=== PATIENT | female | born 1990 | race Caucasian/White ===

== ENCOUNTER 2021-01-11 14:57 | Emergency (ER) | payer OTHER ==
[~2021-01-11] VITALS: Ht 170.2 cm; Wt 108.3 kg
[2021-01-11] MEDS ORDERED: ACETAMINOPHEN 500 MG TAB PO ONE (17:50)
[2021-01-11] MEDS ORDERED: NS 1,000 ML IV ONE (17:50)
[2021-01-11] MEDS ORDERED: ONDANSETRON 4MG/2ML VIAL IV ONE (17:50)
[2021-01-11 17:54] LABS: BASO # 0.1 10^3/uL (0.0-0.2); BASO % 0.5 % (0.0-1.0); EOS # 0.2 10^3/uL (0.0-0.5); HEMATOCRIT 38.2 % (36.0-47.0); HEMOGLOBIN 12.8 g/dl (12.0-15.5); LYMPH # 2.5 10^3/uL (1.5-5.0); MEAN CORPUSCULAR HEMOGLOBIN 30.3 pg (27.0-33.0); MEAN CORPUSCULAR HGB CONC 33.5 g/dl (32.0-36.5); MEAN CORPUSCULAR VOLUME 90.3 fl (80.0-96.0); MONO # 0.8 10^3/uL (0.0-0.8); MONO % 4.9 % (2.0-8.0); NEUTROPHILS # 11.6 10^3/uL (1.5-8.5); NEUTROPHILS % 75.8 % (36.0-66.0); PLATELET COUNT, AUTOMATED 307 10^3/uL (150-450); RED BLOOD COUNT 4.23 10^6/uL (4.00-5.40); WHITE BLOOD COUNT 15.4 10^3/uL (4.0-10.0)
[2021-01-11 18:21] LABS: ALBUMIN 2.8 GM/DL (3.2-5.2); ALT/SGPT 19 U/L (12-78); BILIRUBIN,DIRECT < 0.1 MG/DL (0.0-0.2); BILIRUBIN,TOTAL 0.3 MG/DL (0.2-1.0); CPK CREATINE PHOSPHOKINASE 31 U/L (26-192); LIPASE 59 U/L (73-393); TOTAL PROTEIN 6.8 GM/DL (6.4-8.2)
[2021-01-11 20:09] VITALS: BP 121/63
== END 2021-01-11 20:25 | disposition home or self-care (01) ==
LOC: M ED 14:57
DX: R51.9 Headache, unspecified (principal); E10.9 Type 1 diabetes mellitus without complications
CPT/HCPCS: 80047; 80076; 81001; 82550; 83690; 85025; 96361; 96374; 99284; J2405

== ENCOUNTER 2022-10-25 20:07 | Inpatient (IN) | payer OTHER ==
[~2022-10-25] VITALS: Ht 170.2 cm; Wt 110.6 kg
[2022-10-25] MEDS ORDERED: DEXTROSE 50% 50ML SYRINGE IV STA ×2 (20:19→21:48)
[2022-10-25] MEDS ORDERED: DEXTROSE 50% 50ML SYRINGE As Ordered ONE (20:21)
[2022-10-25] MEDS ORDERED: D5W/0.45% SODIUM CHLORIDE 1,000 ML IV SCH (20:30)
[2022-10-25 20:33] LABS: VENOUS BASE EXCESS -0.5 (-2.0-2.0); VENOUS HCO3 23.3 MEQ/L (23.0-27.0); VENOUS O2 SATURATION 98.6 % (60.0-80.0); VENOUS PARTIAL PRESSURE CO2 36.3 mmHg (38.0-50.0); VENOUS PARTIAL PRESSURE O2 130.4 mmHg (30.0-50.0); VENOUS PH 7.426 UNITS (7.330-7.430); VENOUS STANDARD HCO3 24.1 MEQ/L; VENOUS TOTAL CO2 24.5 MEQ/L (24.0-28.0)
[2022-10-25 20:36] LABS: BASO # 0.1 10^3/uL (0.0-0.2); BASO % 0.3 % (0.0-1.0); EOS # 0.2 10^3/uL (0.0-0.5); HEMATOCRIT 41.8 % (36.0-47.0); HEMOGLOBIN 14.2 g/dl (12.0-15.5); LYMPH # 2.8 10^3/uL (1.5-5.0); LYMPH % 14.6 % (24.0-44.0); MEAN CORPUSCULAR HEMOGLOBIN 29.3 pg (27.0-33.0); MEAN CORPUSCULAR VOLUME 86.4 fl (80.0-96.0); MONO # 0.8 10^3/uL (0.0-0.8); MONO % 4.3 % (2.0-8.0); NEUTROPHILS # 15.2 10^3/uL (1.5-8.5); NEUTROPHILS % 79.3 % (36.0-66.0); PLATELET COUNT, AUTOMATED 346 10^3/uL (150-450); RED BLOOD COUNT 4.84 10^6/uL (4.00-5.40); WHITE BLOOD COUNT 19.1 10^3/uL (4.0-10.0)
[2022-10-25 20:48] LABS: HEMOGLOBIN A1c 6.3 % (4.0-6.0)
[2022-10-25 21:02] LABS: LIPASE 28 U/L (12-53)
[2022-10-25 21:16] LABS: ALBUMIN 3.7 G/DL (3.2-5.2); ALKALINE PHOSPHATASE 65 U/L (46-116); ALT/SGPT 10 U/L (7.0-40); AST/SGOT 9 U/L (<34); BILIRUBIN,DIRECT < 0.1 MG/DL (<0.4); BILIRUBIN,TOTAL 0.3 MG/DL (0.3-1.2); TOTAL PROTEIN 7.3 G/DL (5.7-8.2)
[2022-10-25] MEDS ORDERED: METF-838 PO (22:25)
[2022-10-25] MEDS ORDERED: PYRI50TA41 (22:25)
[2022-10-25] MEDS ORDERED: INSUH10VL INJ (22:25)
[2022-10-25] MEDS ORDERED: METO10TA2 (22:25)
[2022-10-25 23:21] LABS: OSMOLALITY SERUM 277 MOSM/KG (275-295)
[2022-10-25] MEDS ORDERED: ONDANSETRON 4MG 2ML VIAL IV ONE (23:45)
[2022-10-26] VITALS (7 sets, daily range): BP systolic 106–130; BP diastolic 55–66
[2022-10-26] MEDS ORDERED: GLUCOSE 4GM CHEW TABLET PO PRN (00:10)
[2022-10-26] MEDS ORDERED: GLUCAGON INJ 1MG VIAL SC PRN (00:10)
[2022-10-26] MEDS ORDERED: DEXTROSE 50% 50ML SYRINGE IV PRN (00:10)
[2022-10-26] MEDS ORDERED: MOM 30ML SUSPENSION UDC PO PRN (00:10)
[2022-10-26] MEDS ORDERED: D5W/0.45% SODIUM CHLORIDE 1,000 ML IV SCH (00:20)
[2022-10-26] MEDS ORDERED: MAGN400T2 PO (00:31)
[2022-10-26] MEDS ORDERED: FISH1CAP26 PO (00:31)
[2022-10-26] MEDS ORDERED: prenatal PO (00:31)
[2022-10-26] MEDS ORDERED: ASPI81TA26 PO (00:31)
[2022-10-26] MEDS ORDERED: VITA200020 PO (00:31)
[2022-10-26] MEDS ORDERED: HOME MED LIST COMPLETE! XX SCH (00:35)
[2022-10-26 00:37] LABS: RSV AMPLIFICATION NEGATIVE (NEGATIVE)
[2022-10-26] MEDS: INSULIN LISPRO (NovoLOG) PER UNIT SC SCH ×2 (00:50→07:00)
[2022-10-26] MEDS: PROMETHAZINE 25MG/ML 1ML VIAL IV PRN ×2 (01:31→09:10)
[2022-10-26 06:59] LABS: HEMATOCRIT 39.6 % (36.0-47.0); HEMOGLOBIN 13.1 g/dl (12.0-15.5); MEAN CORPUSCULAR HEMOGLOBIN 29.6 pg (27.0-33.0); MEAN CORPUSCULAR HGB CONC 33.1 g/dl (32.0-36.5); MEAN CORPUSCULAR VOLUME 89.6 fl (80.0-96.0); PLATELET COUNT, AUTOMATED 261 10^3/uL (150-450); RED BLOOD COUNT 4.42 10^6/uL (4.00-5.40); WHITE BLOOD COUNT 8.7 10^3/uL (4.0-10.0)
[2022-10-26 07:29] LABS: BLOOD UREA NITROGEN 18 MG/DL (9-23); CALCIUM LEVEL 7.8 MG/DL (8.5-10.1); CARBON DIOXIDE LEVEL 18 MMOL/L (20-31); CHLORIDE LEVEL 103 MMOL/L (98-107); CREATININE FOR GFR 0.55 MG/DL (0.55-1.30); GLOMERULAR FILTRATION RATE > 60.0 (>60); GLUCOSE, FASTING 399 MG/DL (60-100); POTASSIUM SERUM 4.3 MMOL/L (3.5-5.1); SODIUM LEVEL 130 MMOL/L (136-145)
[2022-10-26] MEDS ORDERED: INSULIN LISPRO (NovoLOG) PER UNIT SC SCH ×3 (07:30→21:00)
[2022-10-26 11:38] LABS: BLOOD UREA NITROGEN 16 MG/DL (9-23); CARBON DIOXIDE LEVEL 21 MMOL/L (20-31); CHLORIDE LEVEL 101 MMOL/L (98-107); CREATININE FOR GFR 0.55 MG/DL (0.55-1.30); GLOMERULAR FILTRATION RATE > 60.0 (>60); GLUCOSE, FASTING 221 MG/DL (60-100); POTASSIUM SERUM 3.9 MMOL/L (3.5-5.1); SODIUM LEVEL 132 MMOL/L (136-145)
[2022-10-27] VITALS: BP 107/58
[2022-10-27 04:00] VITALS: BP 100/52
[2022-10-27 07:43] LABS: HEMOGLOBIN 12.6 g/dl (12.0-15.5); MEAN CORPUSCULAR HEMOGLOBIN 29.6 pg (27.0-33.0); MEAN CORPUSCULAR HGB CONC 33.2 g/dl (32.0-36.5); MEAN CORPUSCULAR VOLUME 89.4 fl (80.0-96.0); PLATELET COUNT, AUTOMATED 258 10^3/uL (150-450); RED BLOOD COUNT 4.25 10^6/uL (4.00-5.40); WHITE BLOOD COUNT 5.8 10^3/uL (4.0-10.0)
[2022-10-27 07:54] LABS: BLOOD UREA NITROGEN 10 MG/DL (9-23); CALCIUM LEVEL 7.9 MG/DL (8.5-10.1); CARBON DIOXIDE LEVEL 22 MMOL/L (20-31); CHLORIDE LEVEL 108 MMOL/L (98-107); CREATININE FOR GFR 0.51 MG/DL (0.55-1.30); GLOMERULAR FILTRATION RATE > 60.0 (>60); GLUCOSE, FASTING 83 MG/DL (60-100); SODIUM LEVEL 138 MMOL/L (136-145)
[2022-10-27 08:00] VITALS: BP 105/67
== END 2022-10-27 11:33 | disposition home or self-care (01) | DRG 833 ==
LOC: EDBD 20:07 → M ED 20:07 → M ED INP 23:52 → M PCU 10-26 00:44 → M PED 10-26 20:01
PROVIDERS: ADMIT Family Medicine; ATTEND Internal Medicine
DX: O24.011 Pre-existing type 1 diabetes mellitus, in pregnancy, first trimester (principal); E10.649 Type 1 diabetes mellitus with hypoglycemia without coma; Z79.4 Long term (current) use of insulin; Z3A.12 12 weeks gestation of pregnancy

== ENCOUNTER 2023-03-23 23:41 | Outpatient (CLI) | payer OTHER ==
[~2023-03-23] VITALS: Ht 170.2 cm; Wt 129.0 kg
[~2023-03-23 23:41] MED LIST: ASPI81TA26 PO; FISH1CAP26 PO; INSUH10VL INJ; MAGN400T2 PO; METF-838 PO; METO10TA2; PYRI50TA41; VITA200020 PO; prenatal PO
[2023-03-24 00:02] VITALS: BP 142/77
[2023-03-24] MEDS ORDERED: HOME MED LIST COMPLETE! XX SCH (00:10)
[2023-03-24 01:32] VITALS: BP 123/77
== END 2023-03-24 02:08 | disposition home or self-care (01) ==
LOC: M LDO 23:41
PROVIDERS: ATTEND Obstetrics & Gynecology
DX: O42.913 Preterm premature rupture of membranes, unspecified as to length of time between rupture and onset of labor, third trimester (principal); Z3A.34 34 weeks gestation of pregnancy; O34.211 Maternal care for low transverse scar from previous cesarean delivery; O24.013 Pre-existing type 1 diabetes mellitus, in pregnancy, third trimester; Z79.4 Long term (current) use of insulin; Z79.84 Long term (current) use of oral hypoglycemic drugs; Z79.82 Long term (current) use of aspirin; Z79.899 Other long term (current) drug therapy
CPT/HCPCS: 59025; 76815; G0463